=== PATIENT | male | born 1970 ===

== ENCOUNTER 2019-11-23 13:05 | Inpatient (IN) | payer MEDICARE, OTHER ==
[~2019-11-23] VITALS: Ht 177.8 cm; Wt 68.0 kg
[2019-11-23 16:26] VITALS: BP 115/71
[2019-11-23] MEDS ORDERED: diphenhydrAMINE 50 MG/1 ML VIAL IV PRN (17:30)
[2019-11-23] MEDS ORDERED: LACTULOSE 20 G/30 ML LIQUID UDC PO PRN (17:30)
[2019-11-23] MEDS ORDERED: MAGNESIUM HYDROXIDE 30 ML LIQUID UDC PO PRN (17:30)
[2019-11-23] MEDS ORDERED: ONDANSETRON HCL 4 MG TABLET PO PRN (17:30)
[2019-11-23] MEDS: ACETAMINOPHEN 325 MG TABLET PO PRN (17:55)
[2019-11-23] MEDS: METHOCARBAMOL 500 MG TABLET PO PRN (17:56)
--- NOTE | 2019-11-23 19:00 | NUR ---
PATIENT IS ALERT, ORIENTED X4, VERBALLY RESPONSIVE, NO SOB,RESP EVEN NONLABORED,SKIN WARM AND DRY TO TOUCH, PATIENT ADMITTED FROM [facility], MEDS VERIFIED WITH DR VIEYRA. PAIN MEDS ORDER GIVEN BY DR LINDQUIST.
[2019-11-23] MEDS: OXYCODONE HCL 5 MG TABLET PO PRN ×2 (19:32→23:13)
--- NOTE | 2019-11-23 20:00 | NUR ---
NSG: Received patient lying in bed. alert and oriented x4. c/o on incision site. pain meds given as ordered. v/s wnl. uses urinal. call light w/in reach.
[2019-11-23 20:35] VITALS: BP 131/76
[2019-11-23] MEDS ORDERED: DOCUSATE SODIUM 100 MG CAPSULE PO SCH (21:00)
--- NOTE | 2019-11-23 21:00 | NUR ---
NSG: PATIENT REFUSED COLACE HS PO DOSE.
[2019-11-24] MEDS: OXYCODONE HCL 5 MG TABLET PO PRN ×4 (03:16→17:22)
[2019-11-24 05:58] VITALS: BP 103/65
[2019-11-24] MEDS: METHOCARBAMOL 500 MG TABLET PO PRN ×2 (06:11→17:14)
--- NOTE | 2019-11-24 06:35 | NUR ---
Patient slept intermittently at night. C/o pain, medicated as needed and as ordered. No acute distress noted. Cephulac given for constipation. All needs attended to promptly. Safety measures maintained. Call light and personal items within reach. Will continue to monitor.
[2019-11-24 08:00] VITALS: BP 102/64
[2019-11-24] MEDS: LIDOCAINE 5% PATCH TD SCH (08:27)
--- NOTE | 2019-11-24 10:00 | NUR ---
FOR PT/OT EVAL Addendum: 11/24/19 at 1404 by VAMSI RUEDA RN Amended: Links added.
--- NOTE | 2019-11-24 10:00 | NUR ---
BM 11/18/2019 Addendum: 11/24/19 at 1404 by VAMSI RUEDA RN Amended: Links added.
[2019-11-24 16:16] VITALS: BP 111/66
--- NOTE | 2019-11-24 18:54 | NUR ---
PATIENT WAS GIVEN PAIN MED OXYCODONE 15MG PO TWICE TODAY DURING PT/OT TIME, AND OXYCODONE 10 MG PO AT DINNER TIME WITH GOOD EFFECT. ALL NEEDS ATTENDED.
[2019-11-24 19:47] VITALS: BP 107/67
--- NOTE | 2019-11-24 20:28 | NUR ---
Received pt resting in bed. AAO x4. No acute distress noted. VSS. Safety measures maintained. Call light and personal items within reach. Will continue to monitor.
[2019-11-25] MEDS: SENNOSIDES 1 TABLET PO PRN ×2 (00:08→21:10)
[2019-11-25] MEDS: OXYCODONE HCL 5 MG TABLET PO PRN ×6 (00:09→21:10)
[2019-11-25] MEDS: METHOCARBAMOL 500 MG TABLET PO PRN ×3 (03:07→22:17)
[2019-11-25 04:45] VITALS: BP 115/74
[2019-11-25 08:00] VITALS: BP 98/67
[2019-11-25] MEDS: LIDOCAINE 5% PATCH TD SCH (10:18)
[2019-11-25 19:20] VITALS: BP 150/93
[2019-11-25] MEDS: MIRALAX 17 GM POWD.PACK GT SCH (21:09)
[2019-11-26] MEDS: OXYCODONE HCL 5 MG TABLET PO PRN ×5 (00:58→20:41)
--- NOTE | 2019-11-26 03:14 | NUR ---
No acute events overnight, pt states pain medicine temporary relieves his pain but doesn't last long. pt asking for pain meds q4h.
[2019-11-26] MEDS: METHOCARBAMOL 500 MG TABLET PO PRN ×2 (05:44→14:44)
[2019-11-26 06:21] VITALS: BP 125/85
--- NOTE | 2019-11-26 08:00 | NUR ---
Received pt. resting in bed alert oriented x4. Pt. denies pain at this time. In no acute distress. Pt. denies SOB/ difficulty breathing. Safety measures in place. Call light within reach. Will continue to monitor pt.
[2019-11-26] MEDS: LIDOCAINE 5% PATCH TD SCH (08:27)
[2019-11-26 08:54] VITALS: BP 100/64
[2019-11-26 15:53] VITALS: BP 114/77
[2019-11-26] MEDS: SENNOSIDES 1 TABLET PO PRN (16:59)
[2019-11-26 20:00] VITALS: BP 125/77
[2019-11-26] MEDS: MIRALAX 17 GM POWD.PACK GT SCH (20:42)
[2019-11-27] MEDS: OXYCODONE HCL 5 MG TABLET PO PRN ×7 (01:05→23:18)
[2019-11-27] MEDS: METHOCARBAMOL 500 MG TABLET PO PRN ×3 (01:06→20:40)
[2019-11-27 05:00] VITALS: BP 106/68
[2019-11-27 07:43] VITALS: BP 108/74
[2019-11-27] MEDS: LIDOCAINE 5% PATCH TD SCH (08:58)
[2019-11-27] MEDS: BISACODYL 10 MG SUPP.RECT RC PRN (08:59)
[2019-11-27 15:58] VITALS: BP 107/65
--- NOTE | 2019-11-27 18:19 | NUR ---
Patient continue pain management prior to ambulation and if needed. Continue therapy for increase strenght and endurance. not in distress. Patient had shower today. change dressing for front mid abdomen and back. steri strips noted. slight redness noted. will continue monitor
[2019-11-27 20:00] VITALS: BP 110/65
[2019-11-27] MEDS: SENNOSIDES 1 TABLET PO PRN (20:41)
[2019-11-28] MEDS: OXYCODONE HCL 5 MG TABLET PO PRN ×4 (04:56→20:36)
[2019-11-28 05:00] VITALS: BP 103/71
[2019-11-28 08:43] VITALS: BP 104/67
[2019-11-28] MEDS: LIDOCAINE 5% PATCH TD SCH (09:02)
[2019-11-28] MEDS: METHOCARBAMOL 500 MG TABLET PO PRN ×2 (09:02→20:36)
[2019-11-28 15:51] VITALS: BP 114/81
--- NOTE | 2019-11-28 18:18 | NUR ---
Patient is AAO x 4, able to express all needs. NO acute distress noted during shift. Vital signs stable for patient. Pt. on Oxycodone 10mg PO for mild pain and Oxycodone 15mg PO for severe pain. Pain pill administered before PT/OT for pain mgnt. and effective. Pt. on PT/OT as ordered; ambulates with a walker and 1 person assist and BRP. Surgical site on lower back and abdominal site with dressing, intact and dry. Patient assisted during shift, safety measures in place, call light left at bed side and will continue with care.
--- NOTE | 2019-11-28 19:35 | NUR ---
RECEIVED PATIENT IN BED WITH HEAD OF BED ELEVATED AT 30 DEGREES, ALERT AND VERBALLY RESPONSIVE. AFEBRILE. NO RESPIRATORY DISTRESS. NO COMPLAINTS AT THIS TIME. PATIENT COOPERATIVE WITH PLAN OF CARE. ABLE TO MAKE NEEDS KNOWN. KEPT PATIENT WARM AND COMFORTABLE. CALL LIGHT AND PERSONAL BELONGINGS WITHIN REACH.
[2019-11-28 19:51] VITALS: BP 104/72
[2019-11-29] MEDS: OXYCODONE HCL 5 MG TABLET PO PRN ×5 (00:36→20:13)
[2019-11-29 05:30] VITALS: BP 98/66
--- NOTE | 2019-11-29 06:55 | NUR ---
PATIENT IN BED, ALERT AND VERBALLY RESPONSIVE. AFEBRILE. NO RESPIRATORY DISTRESS. RESPIRATION EVEN AND UNLABORED. NO SOB NOTED. IN NO RESPIRATORY OR ACUTE DISTRESS. PATIENT RECEIVED PAIN MEDICATION PER PATIENT'S REQUEST MD ORDER. PAIN RELIEVED WITH MEDICATION. KEPT PATIENT WARM, DRY, AND COMFORTABLE. LEFT PATIENT WITH BED WHEELS LOCKED, CALL LIGHT WITHIN REACH. BED AT LOW POSITION. ALL NEEDS ATTENDED.
[2019-11-29 08:00] VITALS: BP 104/64
[2019-11-29] MEDS: LIDOCAINE 5% PATCH TD SCH (08:55)
[2019-11-29] MEDS: METHOCARBAMOL 500 MG TABLET PO PRN ×2 (09:09→20:12)
[2019-11-29] MEDS: BISACODYL 10 MG SUPP.RECT RC PRN (11:17)
[2019-11-29 16:00] VITALS: BP 109/53
--- NOTE | 2019-11-29 18:22 | NUR ---
Patient in stable condition, AAO x4. NO acute distress noted during shift. VS stable. Pt. on continuous PT/OT therapy. Patient on Oxycodone 10mg and 15mg for pain mgnt. Surgical dressing on lower back and lower abdomen intact and dry. NO S/Sx of infection noted. Pt. on continuos PT/OT therapy. Ambulates with a walker and 1 person assist with BRP privileged. Needs attended, safety measures in place, call light left at bed side and will continue with care.
--- NOTE | 2019-11-29 19:25 | NUR ---
RECEIVED PATIENT IN BED, AWAKE AND ALERT AND VERBALLY RESPONSIVE. CAN MAKE NEEDS KNOWN. WATCHING TELEVISION AT THIS TIME. AFEBRILE. DENIES PAIN AT THIS TIME. FALL AND SAFETY PRECAUTIONS OBSERVED. BED WHEELS LOCKED, BED AT LOW POSITION, CALL LIGHT WITHIN REACH. WILL CONTINUE TO MONITOR PATIENT.
[2019-11-29 20:22] VITALS: BP 152/62
[2019-11-29 20:43] VITALS: BP 104/56
[2019-11-30] MEDS: OXYCODONE HCL 5 MG TABLET PO PRN ×5 (00:21→20:53)
[2019-11-30 04:40] VITALS: BP 95/62
--- NOTE | 2019-11-30 05:58 | NUR ---
PATIENT IN BED, ASLEEP AT THIS TIME BUT EASILY AROUSED WHEN NAME CALLED. AFEBRILE. RESPIRATION EVEN AND UNLABORED. NO SOB NOTED. IN NO RESPIRATORY OR ACUTE DISTRESS. RECEIVED PAIN PRN MEDICATIONS ORDERED. PAIN RELIEVED UPON REASSESSMENT. LEFT PATIENT WITH BED WHEELS LOCKED, CALL LIGHT WITHIN REACH. BED AT LOW POSITION. ALL NEEDS ATTENDED.
[2019-11-30 08:08] VITALS: BP 104/62
[2019-11-30] MEDS: LIDOCAINE 5% PATCH TD SCH (09:09)
[2019-11-30] MEDS: METHOCARBAMOL 500 MG TABLET PO PRN (12:08)
[2019-11-30 15:44] VITALS: BP 95/78
--- NOTE | 2019-11-30 15:58 | NUR ---
INTERDISCIPLINARY TEAM CONFERENCE
--- NOTE | 2019-11-30 16:00 | NUR ---
PATIENT CONTINUE ON PAIN MANAGEMENT FOR S/P SX. CONTINUE THERAPY FOR INCREASE STRENGHT AND ENDURANCE. TOLERATED WELL. NOT IN DISTRESS. WILL CONTINUE MONITOR
[2019-11-30] MEDS: MIRALAX 17 GM POWD.PACK GT SCH (19:06)
[2019-11-30 19:51] VITALS: BP 118/83
[2019-12-01] MEDS: OXYCODONE HCL 5 MG TABLET PO PRN ×6 (01:08→19:52)
--- NOTE | 2019-12-01 02:58 | NUR ---
Patient seen awake around 1am, complaint of back pain. Oxycodone 10mg every 4 hours PRN given. not in distress. Patient verbalize sleeps on and off due to pain. will continue monitor
[2019-12-01 06:12] VITALS: BP 98/66
[2019-12-01 08:00] VITALS: BP 103/57
[2019-12-01] MEDS: LIDOCAINE 5% PATCH TD SCH (09:42)
[2019-12-01] MEDS: METHOCARBAMOL 500 MG TABLET PO PRN ×2 (09:45→22:27)
--- NOTE | 2019-12-01 09:45 | NUR ---
ROBAXIN GIVEN FOR PAIN ORDERED ALONG WITH OXYCODONE 10MG
[2019-12-01 17:06] VITALS: BP 101/63
--- NOTE | 2019-12-01 19:30 | NUR ---
RECEIVED PATIENT AWAKE IN BED, WATCHING TELEVISION. AO X 4. PATIENT COMPLAINS OF PAIN IN HIS BACK, ABOUT 7/10. WILL MEDICATE APPROPRIATELY. NO SHORTNESS OF BREATH NOTED. NO ACUTE DISTRESS NOTED. PATIENT. NEEDS ATTENDED, CALL LIGHT WITHIN REACH. WILL CONTINUE TO MONITOR PATIENT ACCORDINGLY.
[2019-12-01 20:03] VITALS: BP 112/75
[2019-12-01] MEDS ORDERED: METHOCARBAMOL 500 MG TABLET ONE (22:20)
[2019-12-01] MEDS: SENNOSIDES 1 TABLET PO PRN (22:27)
[2019-12-02] MEDS: OXYCODONE HCL 5 MG TABLET PO PRN ×6 (00:06→22:12)
[2019-12-02 04:00] VITALS: BP 104/65
--- NOTE | 2019-12-02 06:14 | NUR ---
PATIENT SLEPT WELL THROUGHOUT THE NIGHT. COMPLAINED OF PAIN THROUGHOUT THE NIGHT, MEDICATED APPROPRIATELY WITH PRN PAIN MEDICATIONS. ALL NEEDS ATTENDED. VITAL SIGNS WITHIN NORMAL. WILL ENDORSE TO ONCOMING SHIFT.
[2019-12-02 08:00] VITALS: BP 100/63
[2019-12-02] MEDS: LIDOCAINE 5% PATCH TD SCH (08:10)
[2019-12-02] MEDS: METHOCARBAMOL 500 MG TABLET PO PRN ×2 (08:10→22:11)
[2019-12-02] MEDS: ACETAMINOPHEN 325 MG TABLET PO PRN (08:41)
[2019-12-02 16:46] VITALS: BP 97/62
[2019-12-02] MEDS: MIRALAX 17 GM POWD.PACK GT SCH (18:35)
--- NOTE | 2019-12-02 19:35 | NUR ---
RECEIVED PATIENT IN BED, ALERT AND VERBALLY RESPONSIVE. CAN MAKE NEEDS KNOWN. DENIES PAIN AT THIS TIME. WARM AND COMFORTABLE AT THIS TIME. FALL AND SAFETY PRECAUTIONS OBSERVED. WILL CONTINUE TO MONITOR PATIENT. ALL NEEDS ATTENDED.
[2019-12-02 20:51] VITALS: BP 99/63
[2019-12-03] MEDS: OXYCODONE HCL 5 MG TABLET PO PRN ×6 (02:16→22:36)
[2019-12-03 04:00] VITALS: BP 93/63
--- NOTE | 2019-12-03 06:00 | NUR ---
PATIENT IN BED, ASLEEP. RESPIRATIONS EVEN AND UNLABORED. PATIENT HAD PAIN INTERMITTENTLY AT LOWER BACK AREA. RECEIVED PAIN MEDICATION ORDERED. PAIN RELIEVED AFTER RECEIVING PAIN MEDICATION. PATIENT KEPT WARM, DRY, AND COMFORTABLE. ALL NEEDS ATTENDED. CALL LIGHT AND PERSONAL BELONGINGS KEPT WITHIN REACH. BED AT LOW POSITION, BED WHEELS LOCKED, SIDE RAILS X 2 UP.
[2019-12-03 08:34] VITALS: BP 106/63
[2019-12-03] MEDS: LIDOCAINE 5% PATCH TD SCH ×2 (10:19→10:27)
[2019-12-03] MEDS: MIRALAX 17 GM POWD.PACK GT SCH (10:42)
--- NOTE | 2019-12-03 11:52 | NUR ---
NO BM NOTED FOR MORE THAN 3 DAYS MIRALAX GIVEN ORDERED.
[2019-12-03 16:55] VITALS: BP 102/78
--- NOTE | 2019-12-03 19:24 | NUR ---
RECEIVED PATIENT IN BED, ALERT AND VERBALLY RESPONSIVE. CAN MAKE NEEDS KNOWN. AFEBRILE. NO RESPIRATORY DISTRESS. NO COMPLAINTS OF PAIN AT THIS TIME. WATCHING TELEVISION AT THIS TIME. FALL AND SAFETY PRECAUTIONS OBSERVED. CALL LIGHT WITHIN REACH, BED WHEELS LOCKED, BED AT LOW POSITION. SIDE RAILS X 2 UP. ALL NEEDS ATTENDED. WILL CONTINUE TO MONITOR PATIENT.
[2019-12-03 20:00] VITALS: BP 121/69
[2019-12-03] MEDS: METHOCARBAMOL 500 MG TABLET PO PRN (22:39)
[2019-12-04] MEDS: OXYCODONE HCL 5 MG TABLET PO PRN ×3 (02:36→11:59)
[2019-12-04 05:43] VITALS: BP 105/55
--- NOTE | 2019-12-04 06:01 | NUR ---
PATIENT IS IN BED, ASLEEP AT THIS TIME. RESPIRATIONS EVEN AND UNLABORED. WARM AND COMFORTABLE. NO FACIAL GRIMACING AT THIS TIME. ALL NEEDS ATTENDED.
[2019-12-04 07:13] LABS: BASOPHILS # (AUTO) 0.1 K/uL (0.0-8.0); BASOPHILS % (AUTO) 0.9 % (0.0-2.0); EOSINOPHILS # (AUTO) 0.3 K/uL (0.0-0.7); EOSINOPHILS % (AUTO) 4.9 % (0.0-7.0); HEMATOCRIT 32.2 % (36.7-47.1); HEMOGLOBIN 10.9 g/dL (12.5-16.3); LYMPHOCYTES # (AUTO) 1.6 K/uL (20.0-40.0); LYMPHOCYTES % (AUTO) 25.1 % (20.5-51.5); MEAN CORPUSCULAR HEMOGLOBIN 31.3 uug (23.8-33.4); MEAN CORPUSCULAR HGB CONC 34 g/dL (32.5-36.3); MEAN CORPUSCULAR VOLUME 92.8 fL (73.0-96.2); MONOCYTES # (AUTO) 0.6 K/uL (2.0-10.0); MONOCYTES % (AUTO) 9.7 % (0.0-11.0); NEUTROPHILS # (AUTO) 3.7 K/uL (1.8-8.9); NEUTROPHILS % (AUTO) 59.4 % (38.5-71.5); PLATELET COUNT (AUTO) 446 K/uL (152-348); RED BLOOD CELL COUNT(AUTO) 3.47 MIL/uL (4.06-5.63); WHITE BLOOD COUNT (AUTO) 6.3 K/uL (3.6-10.2)
[2019-12-04 07:23] LABS: CREATININE 0.9 mg/dL (0.6-1.3); MAGNESIUM 2.2 mg/dL (1.8-2.4); PHOSPHOROUS 4.2 mg/dL (2.5-4.9); POTASSIUM 4.1 mmol/L (3.5-5.1)
[2019-12-04 08:22] VITALS: BP 93/61
[2019-12-04] MEDS: LIDOCAINE 5% PATCH TD SCH (10:08)
[2019-12-04] MEDS: BISACODYL 10 MG SUPP.RECT RC PRN (10:09)
[2019-12-04] MEDS: METHOCARBAMOL 500 MG TABLET PO PRN ×2 (13:14→22:40)
[2019-12-04] MEDS ORDERED: LACTULOSE 20 G/30 ML LIQUID UDC PO PRN (15:30)
[2019-12-04] MEDS ORDERED: diphenhydrAMINE 25 MG CAP PO PRN (15:30)
[2019-12-04] MEDS ORDERED: ACETAMINOPHEN 325 MG TABLET PO PRN (15:30)
[2019-12-04] MEDS ORDERED: ONDANSETRON HCL 4 MG TABLET PO PRN (15:30)
[2019-12-04 15:31] VITALS: BP 108/70
[2019-12-04] MEDS ORDERED: MIRALAX 17 GM POWD.PACK PO PRN (15:38)
--- NOTE | 2019-12-04 15:45 | NUR ---
PATIENT CAME AROUND 3PM FROM DR. HERNANDEZ [facility] SX CONSULT IN STABLE CONDITION. RECOMMEND NORCO 10-325MG FROM OXYCODONE 10MG EVERY 4HRS PRN. MD LINDQUIST. FF UP CONSULT AFTER 4 WEEKS AND LUMBAR SPINE X-RAY FOR SX FF UP.
[2019-12-04] MEDS: HYDROCODONE/APAP 10-325 MG TABLET PO PRN ×2 (17:47→22:39)
[2019-12-04] MEDS ORDERED: ACETAMINOPHEN 325 MG TABLET PO SCH (18:00)
[2019-12-04 20:00] VITALS: BP 106/63
--- NOTE | 2019-12-05 01:25 | NUR ---
resting in bed upon initial rounds. AAox4 needs attended. VSS. Ambulates with walker with supervision. Voiding freely. Kept comfortable. Medicated for pain as needed with relief obtained. Fall precautions maintained. Siderails up for safety. Back and abdominal incision intact, steristrips out with dressing intact. Will monitor patient. Call givens within reach.
[2019-12-05] MEDS: HYDROCODONE/APAP 10-325 MG TABLET PO PRN ×5 (03:25→20:39)
[2019-12-05 05:00] VITALS: BP 107/59
--- NOTE | 2019-12-05 07:04 | NUR ---
End of the shift note: Slept well most of the shift. AAOx4o acute distress noted. VSS. Pain meds given as needed, with moderate relief noted. Voiding freely in urinal. No acute distress noted.
[2019-12-05 08:00] VITALS: BP 96/57
[2019-12-05] MEDS: METHOCARBAMOL 500 MG TABLET PO PRN ×2 (09:01→22:14)
[2019-12-05 16:45] VITALS: BP 95/60
--- NOTE | 2019-12-05 18:34 | NUR ---
Patient in stable condition, Vital signs are stable. Afebrile. NO SOB noted. Tilly 10/325mg 1 tab for pain and effective. Pt. is with one person assist and using a walker and crutches. Compliant with care. Surgical site on lower back and lower abdomen intact and with dressing in place. NO s/sx of infection noted. Safety measures in place, call light left at bed side, endorsed to next shift and will continue with care.
--- NOTE | 2019-12-05 19:37 | NUR ---
Endorsed to next shift.
[2019-12-05 20:08] VITALS: BP 107/73
--- NOTE | 2019-12-06 00:36 | NUR ---
aaox4 no distress noted. needs attended. VSS kept comfortable. medicated for pain as needed. voiding freely. Will monitor patient.
[2019-12-06] MEDS: HYDROCODONE/APAP 10-325 MG TABLET PO PRN ×5 (02:27→21:09)
[2019-12-06 04:00] VITALS: BP 95/62
[2019-12-06 07:42] VITALS: BP 108/65
[2019-12-06] MEDS: LIDOCAINE 5% PATCH TD SCH ×2 (08:22→09:08)
[2019-12-06] MEDS: METHOCARBAMOL 500 MG TABLET PO PRN ×2 (09:09→21:09)
--- NOTE | 2019-12-06 10:47 | NUR ---
PATIENT CONTINUE PAIN MANAGEMENT IF NEEDED AND PRIOR THERAPY. NOT IN DISTRESS. FOR DISCHARGE TOM. DAWN FOR REVIEW AND SIGN BY DIANE ARMAS. WILL CONTINUE MONITOR
[2019-12-06 11:11] LABS: CALCITRIOL VIT D,1,25 DIHYDROX 12.3 pg/mL (19.9-79.3)
[2019-12-06 15:37] VITALS: BP 115/76
--- NOTE | 2019-12-06 17:16 | NUR ---
PATIENT FOR DISCHARGE [place] AROUND 1-2PM, MD STOVER AWARE WITH TMS. MD LINDQUIST NOTIFIED WITH DISCHARGE PRESCRIPTION FOR PAIN MANAGEMENT. CONTINUE PAIN MANAGEMENT WITH THERAPIES. TOLERATED WELL. WILL CONTINUE MONITOR
[2019-12-06 20:46] VITALS: BP 104/68
[2019-12-07] MEDS: HYDROCODONE/APAP 10-325 MG TABLET PO PRN ×3 (01:28→09:45)
--- NOTE | 2019-12-07 04:24 | NUR ---
No acute events overnight, pain is well managed using current pain regimen. pt able to ambulate with SBA to the bathroom. Verbalizes being able to sleep better.
[2019-12-07] MEDS: METHOCARBAMOL 500 MG TABLET PO PRN ×2 (05:35→13:59)
[2019-12-07 05:50] VITALS: BP 92/62
[2019-12-07 08:15] VITALS: BP 106/66
[2019-12-07] MEDS ORDERED: ERGOCALCIFEROL 50,000 UNIT CAPSULE PO SCH (09:00)
[2019-12-07] MEDS: LIDOCAINE 5% PATCH TD SCH (09:46)
--- NOTE | 2019-12-07 16:53 | NUR ---
PATIENT DISCHARGE AROUND 445PM IN STABLE CONDITION VIA [facility] WITH 2 EMT. MEDICATION LIST GIVEN TO PATIENT. FAX TO PHARMACY. DISCHARGE INSTRUCTION GIVEN TO PATIENT, VERBALIZE UNDERSTANDING. ADVISE SCHEDULE FF UP WITH PRIMARY PHYSICIAN AND SURGEON. PATIENT THANKFUL FOR THE CARE GIVEN. MD LINDQUIST NOTIFIED AND VIP MD. WOUND PICTURE TAKEN.
== END 2019-12-07 16:45 | disposition home health service (06) | DRG 560 ==
PROVIDERS: ADMIT Physical Medicine & Rehabilitation Pain Medicine; ATTEND Physical Medicine & Rehabilitation Pain Medicine
DX: Z47.89 Encounter for other orthopedic aftercare (principal); M96.89 Other intraoperative and postprocedural complications and disorders of the musculoskeletal system; M51.16 Intervertebral disc disorders with radiculopathy, lumbar region; G89.29 Other chronic pain; Z88.6 Allergy status to analgesic agent; Z88.8 Allergy status to other drugs, medicaments and biological substances; Z87.891 Personal history of nicotine dependence; Z82.49 Family history of ischemic heart disease and other diseases of the circulatory system
CPT/HCPCS: 36415; 82652; 83735; 83970; 84100; 85025; A4663